=== PATIENT | female | born 1990 | race Caucasian/White ===

== ENCOUNTER 2017-06-29 22:12 | Emergency (ER) | payer OTHER ==
[~2017-06-29] VITALS: Ht 167.6 cm; Wt 63.5 kg
--- OUTSIDE RECORDS SUMMARY | ~2017-06-29 | XMS ---
Demographics + + + | Address | [address] | | | [place] [address] | + + + | Preferred Language | Unknown | + + + | Marital Status | Unknown | + + + | Baptism Affiliation | Unknown | + + + | Race | Unknown | + + + | Ethnic Group | Unknown | + + + Author + + + | Author | [facility] | + + + | Organization | [facility] | + + + | Address | 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 | | | | | | | | disabiliti | | | | | | | | es | | | | | | +---------+ + + +--------+ + + | Problem | Mood | 296.90 | | | Active | 33921956 | | | disorder | | | | | | +---------+ + + +--------+ + + | Problem | PTSD | 309.81 | | | Active | 90978797 | | | (post-trau | | | | | | | | matic | | | | | | | | stress | | | | | | | | disorder) | | | | | | +---------+ + + +--------+ + + | Problem | Pharyngiti | 034.0 | | | Active | 24229583 | | | s, | | | | | | | | streptococ | | | | | | | | jordan | | | | | | +---------+ + + +--------+ + + | Problem | | V25.9 | | | Active | 54442057 | | | control | | | | | | +---------+ + + +--------+ + + | Problem | Personalit | 301.9 | | | Active | 12919981 | | | y disorder | | | | | | +---------+ + + +--------+ + + | Problem | Impacted | H61.22 | | | Active | 27005235 | | | cerumen of | | | | | | | | left ear | | | | | | +---------+ + + +--------+ + + | Problem | Allergic | 477.8 | | | Active | 59345429 | | | rhinitis | | | | | | | | due to | | | | | | | | other | | | | | | | | allergen | | | | | | +---------+ + + +--------+ + + | Problem | Aspergers' | 299.80 | | | Active | 23987023 | | | syndrome | | | | | | +---------+ + + +--------+ + + | Problem | Dysthymic | 300.4 | | | Active | 36877524 | | | disorder | | | | | | +---------+ + + +--------+ + + | Problem | Hx of | V12.49 | | | Active | 915126947 | | | migraines | | | | | | +---------+ + + +--------+ + + | Problem | Chronic | 719.41 | | | Active | 626358975 | | | pain in | | | | | | | | right | | | | | | | | shoulder | | | | | | +---------+ + + +--------+ + + ALLERGIES + + + + +---------+ | Substance | Reaction | Event Type | Date | Status | + + + + +---------+ | N.K.D.A. | Unknown | Non Drug | March, | Unknown | | | | Allergy | | | + + + + +---------+ SOCIAL HISTORY No smoking Hx information available PLAN OF CARE + +---------+ | Activity | Details | + +---------+ +---+ | | +---+ + + + | Follow Up | as scheduled with PCP and as scheduled for | | | lab work Reason:null | + + + VITAL SIGNS + + + + | Height | 64.5 in | 2017-03-19 | + + + + | Weight | 165.9 lbs | 2017-03-19 | + + + + | BMI | 28.03 kg/m2 | 2017-03-19 | + + + + | Temperature | 98.3 degrees Fahrenheit | 2017-03-19 | + + + + | Heart Rate | 94 /min | 2017-03-19 | + + + + | Blood pressure systolic | 157 mm Hg | 2017-03-19 | + + + + | Blood pressure diastolic | 98 mm Hg | 2017-03-19 | + + + + MEDICATIONS + + + + + + + +--------+ | Medicati | Instruct | Dosage | Frequenc | Start | End Date | Duration | Status | | on | ions | | y | Date | | | | + + + + + + + +--------+ | Isentres | Orally | 1 tablet | 12h | 19 March, | | 28 | Active | | s 400 MG | Twice a | | | 2016 | | day(s) | | | | day | | | | | | | + + + + + + + +--------+ | Truvada | Orally | 1 tablet | 24h | 19 March, | | 28 | Active | | 200-300 | Once a | | | 2016 | | day(s) | | | MG | day | | | | | | | + + + + + + + +--------+ RESULTS + +--------+------+ + | Name | Result | Date | Reference Range | + +--------+------+ + | HIV screen | | | | + +--------+------+ + | result | | | | + +--------+------+ + | Hepatitis C Virus | | | | | Antibody | | | | + +--------+------+ + | HEPATITIS C VIRUS | | | | | ANTIBODY | | | | + +--------+------+ + PROCEDURES + + + + + | Procedure | Date Ordered | Related Diagnosis | Body Site | + + + + + | HEP A/HEP B VACC, | March 19, 2017 | | | | ADULT IM | | | | + + + + + | IMMUNIZATION ADMIN | March 19, 2017 | | | + + + + + | Est Level IV | March 19, 2017 | | | | Extended | | | | + + + + + IMMUNIZATIONS +---------+ + + + | Vaccine | Route | Administration Date | Status | +---------+ + + + | Hep B | IM Intramuscular | March 19, 2017 | Administered | +---------+ + + + | Hep B | IM Intramuscular | March 19, 2017 | Administered | +---------+ + + +"
--- OUTSIDE RECORDS SUMMARY | ~2017-06-29 | XMS ---
Demographics + + + | Address | [address] | | | [place] [address] | + + + | Preferred Language | Unknown | + + + | Marital Status | Unknown | + + + | Orthodoxy Affiliation | Unknown | + + + | Race | Unknown | + + + | Ethnic Group | Unknown | + + + Author + + + | Author | [facility] | + + + | Organization | [facility] | + + + | Address | [address] | | | [place] [address] | + + + | Phone | | + + + Care Team Providers + + + + | Care Rim Turning Machine Operator Name | Role | Phone | + + + + Unavailable | Unavailable | + + + + PROBLEMS +---------+ + + +--------+ + + | Type | Condition | ICD9-CM | [id number] | Onset | Condition | SNOMED | | | | Code | Code | Dates | Status | Code | +---------+ + + +--------+ + + | Problem | Mild | 317 | | | Active | 07115803 | | | intellectu | | | | | | | | al | | | | | | | | disabiliti | | | | | | | | es | | | | | | +---------+ + + +--------+ + + | Problem | Mood | 296.90 | | | Active | 51607085 | | | disorder | | | | | | +---------+ + + +--------+ + + | Problem | PTSD | 309.81 | | | Active | 43966412 | | | (post-trau | | | | | | | | matic | | | | | | | | stress | | | | | | | | disorder) | | | | | | +---------+ + + +--------+ + + | Problem | Pharyngiti | 034.0 | | | Active | 69781471 | | | s, | | | | | | | | streptococ | | | | | | | | jordan | | | | | | +---------+ + + +--------+ + + | Problem | | V25.9 | | | Active | 41184575 | | | control | | | | | | +---------+ + + +--------+ + + | Problem | Personalit | 301.9 | | | Active | 44892678 | | | y disorder | | | | | | +---------+ + + +--------+ + + | Problem | Impacted | H61.22 | | | Active | 16617709 | | | cerumen of | | | | | | | | left ear | | | | | | +---------+ + + +--------+ + + | Problem | Allergic | 477.8 | | | Active | 18339323 | | | rhinitis | | | | | | | | due to | | | | | | | | other | | | | | | | | allergen | | | | | | +---------+ + + +--------+ + + | Problem | Aspergers' | 299.80 | | | Active | 82700248 | | | syndrome | | | | | | +---------+ + + +--------+ + + | Problem | Dysthymic | 300.4 | | | Active | 00919571 | | | disorder | | | | | | +---------+ + + +--------+ + + | Problem | Hx of | V12.49 | | | Active | 454100390 | | | migraines | | | | | | +---------+ + + +--------+ + + | Problem | Chronic | 719.41 | | | Active | 585975874 | | | pain in | | | | | | | | right | | | | | | | | shoulder | | | | | | +---------+ + + +--------+ + + ALLERGIES + + + + +---------+ | Substance | Reaction | Event Type | Date | Status | + + + + +---------+ | N.K.DNaveedA. | Unknown | Non Drug | March, | Unknown | | | | Allergy | | | + + + + +---------+ SOCIAL HISTORY No smoking Hx information available PLAN OF CARE + +---------+ | Activity | Details | + +---------+ +---+ | | +---+ + + + | Follow Up | 6 Months Reason:null | + + + VITAL SIGNS + + + + | Height | 64.5 in | 2017-04-15 | + + + + | Weight | 162.8 lbs | 2017-04-15 | + + + + | BMI | 27.51 kg/m2 | 2017-04-15 | + + + + | Temperature | 99.4 degrees Fahrenheit | 2017-04-15 | + + + + | Heart Rate | 115 /min | 2017-04-15 | + + + + | Blood pressure systolic | 130 mm Hg | 2017-04-15 | + + + + | Blood pressure diastolic | 97 mm Hg | 2017-04-15 | + + + + MEDICATIONS + + + + + + + +--------+ | Medicati | Instruct | Dosage | Frequenc | Start | End Date | Duration | Status | | on | ions | | y | Date | | | | + + + + + + + +--------+ | Hepatiti | | as | | 31 May, | | | Active | | s B Vac | | directed | | 2016 | | | | | Recombin | | | | | | | | | ant 10 | | | | | | | | | MCG/0.5M | | | | | | | | | L | | | | | | | | + + + + + + + +--------+ | Ciproflo | Orally | 1 tablet | 12h | | | | Active | | xacin | Twice a | | | | | | | | HCl 500 | day | | | | | | | | MG | | | | | | | | + + + + + + + +--------+ | Sprintec | Orally | 1 tablet | 24h | 31 March, | | 28 | Active | | 28 | Once a | | | 2017 | | day(s) | | | 0.25-35 | day | | | | | | | | MG-MCG | | | | | | | | + + + + + + + +--------+ | Ciproflo | Otic | 4 drops | 12h | | | | Active | | xacin-De | Twice a | into | | | | | | | xamethas | day | affected | | | | | | | one | | ear | | | | | | | 0.3-0.1 | | | | | | | | | % | | | | | | | | + + + + + + + +--------+ | Hydrocod | Orally | 1 tablet | | | | | Active | | one-Acet | every | as | | | | | | | aminophe | 4-6 hrs | needed | | | | | | | n 5-325 | | | | | | | | | MG | | | | | | | | + + + + + + + +--------+ | Claritin | Orally | 1 tablet | 24h | | | | Active | | -D 24 | Once a | as | | | | | | | Hour | day | needed | | | | | | | 10-240 | | | | | | | | | MG | | | | | | | | + + + + + + + +--------+ RESULTS No Results PROCEDURES + + + + + | Procedure | Date Ordered | Related Diagnosis | Body Site | + + + + + | HEP A/HEP B VACC, | April 15, 2017 | | | | ADULT IM | | | | + + + + + | IMMUNIZATION ADMIN | April 15, 2017 | | | + + + + + | DSCHRG MED/CURRENT | April 15, 2017 | | | | MED MERGE | | | | + + + + + | Est Level III | April 15, 2017 | | | | Intermediate | | | | + + + + + | DOC MEDS VERIFIED | April 15, 2017 | | | | W/PT OR RE | | | | + + + + + IMMUNIZATIONS +---------+ + + + | Vaccine | Route | Administration Date | Status | +---------+ + + + | Hep B | IM Intramuscular | April 15, 2017 | Administered | +---------+ + + +"
[~2017-06-29 22:12] MED LIST: ADULT TUSS100 MG/5 M PO; ALL DAY ALLERGY10 M1 PO; AUGMENTIN 875-1 EACH PO; BENADRYL25 MG PO; BUTALB-ACETAMI1 EAC2 PO; BUTALB-ACETAMI1 EACH PO; CIPRO500 MG PO; CIPRODEX OTIC7.5 ML AS; CIPRODEX OTIC7.5 ML AU; CLARITIN5 MG/5 ML PO; COLACE50 MG PO; FEXOFENADINE HC60 MG PO; FLONASE ALLERG9.9 ML NS; IBUPROFEN800 MG PO; LATUDA60 MG PO; LITHIUM CARBON300 MG PO; NAPROSYN500 MG PO; NAPROXEN500 M1 PO; NORCO 5-325 TA1 EACH PO; PREVIFEM1 EACH PO; PROMETHAZINE HC25 M1 PO; PROMETHAZINE12.5 M1 PO; Q-TUSSIN100 MG/5 M PO; RISPERDAL3 MG PO; SPRINTEC1 EACH PO; TYLENOL325 MG PO; VITAMIN D250000 UNIT PO; [UNRECOGNIZED DRUG - OTHER] PO; [UNRECOGNIZED DRUG - OTHER] TOP
[2017-06-29] MEDS ORDERED: ZYRTEC10 MG PO (22:52)
== END 2017-06-29 22:41 | disposition home or self-care (01) ==
LOC: ED 22:12
PROC: 09C3XZZ Extirpation of Matter from Right External Auditory Canal, External Approach (ICD-10-PCS; principal; 2017-06-29)
DX: T16.1XXA Foreign body in right ear, initial encounter (principal); Z91.018 Allergy to other foods; Z79.899 Other long term (current) drug therapy
CPT/HCPCS: 69200; 99282

== ENCOUNTER 2018-03-02 17:25 | Emergency (ER) | payer OTHER ==
[~2018-03-02] VITALS: Ht 167.6 cm; Wt 65.8 kg
[~2018-03-02 17:25] MED LIST changes: +ZYRTEC10 MG PO
--- OUTSIDE RECORDS SUMMARY | 2018-03-02 17:29 | XMS ---
Demographics + + + | Address | [address] | | | [place] [address] | + + + | Preferred Language | Unknown | + + + | Marital Status | Unknown | + + + | Scientology Affiliation | Unknown | + + + | Race | Unknown | + + + | Ethnic Group | Unknown | + + + Author + + + | Author | [facility] | + + + | Organization | [facility] | + + + | Address | [address] | | | [place] [address] | + + + | Phone | | + + + Care Team Providers + + + + | Care Esol Teacher Assistant Name | Role | Phone | + + + + Unavailable | Unavailable | + + + + PROBLEMS +---------+ + + +--------+ + + | Type | Condition | ICD9-CM | [id number] | Onset | Condition | SNOMED | | | | Code | Code | Dates | Status | Code | +---------+ + + +--------+ + + | Problem | Mild | 317 | | | Active | [id number] | | | intellectu | | | | | | | | al | | | | | | | | disabiliti | | | | | | | | es | | | | | | +---------+ + + +--------+ + + | Problem | Mood | 296.90 | | | Active | 73308408 | | | disorder | | | | | | +---------+ + + +--------+ + + | Problem | PTSD | 309.81 | | | Active | 73978153 | | | (post-trau | | | | | | | | matic | | | | | | | | stress | | | | | | | | disorder) | | | | | | +---------+ + + +--------+ + + | Problem | Pharyngiti | 034.0 | | | Active | 69677994 | | | s, | | | | | | | | streptococ | | | | | | | | jordan | | | | | | +---------+ + + +--------+ + + | Problem | | V25.9 | | | Active | 24671941 | | | control | | | | | | +---------+ + + +--------+ + + | Problem | Personalit | 301.9 | | | Active | 75681170 | | | y disorder | | | | | | +---------+ + + +--------+ + + | Problem | Impacted | H61.22 | | | Active | 36322821 | | | cerumen of | | | | | | | | left ear | | | | | | +---------+ + + +--------+ + + | Problem | Allergic | 477.8 | | | Active | 01856563 | | | rhinitis | | | | | | | | due to | | | | | | | | other | | | | | | | | allergen | | | | | | +---------+ + + +--------+ + + | Problem | Aspergers' | 299.80 | | | Active | 51311038 | | | syndrome | | | | | | +---------+ + + +--------+ + + | Problem | Dysthymic | 300.4 | | | Active | 54076497 | | | disorder | | | | | | +---------+ + + +--------+ + + | Problem | Hx of | V12.49 | | | Active | 834888751 | | | migraines | | | | | | +---------+ + + +--------+ + + | Problem | Chronic | 719.41 | | | Active | 201991154 | | | pain in | | | | | | | | right | | | | | | | | shoulder | | | | | | +---------+ + + +--------+ + + ALLERGIES No Information SOCIAL HISTORY Never Assessed PLAN OF CARE VITAL SIGNS MEDICATIONS Unknown Medications RESULTS No Results PROCEDURES No Known procedures IMMUNIZATIONS No Known Immunizations MEDICAL (GENERAL) HISTORY + + +------+ | Type | Description | Date | + + +------+ | Medical History | seasonal allergies | | + + +------+ | Medical History | asthma | | + + +------+ | Medical History | migraines | | + + +------+ | Medical History | Dysthymic disorder | | + + +------+ | Medical History | PTSD | | + + +------+ | Medical History | Asperger's syndrome | | + + +------+ | Medical History | Pervasive Developmental d/o | | + + +------+ | Medical History | allergies, food, pineapple | | + + +------+ | Surgical History | ACL | | + + +------+ | Hospitalization History | surgery | | + + +------+"
[2018-03-02] MEDS ORDERED: PRENATAL TABLE1 EAC1 PO (17:46)
[2018-03-02] MEDS ORDERED: IRON18 MG PO (17:47)
[2018-03-02] MEDS ORDERED: NORCO 5-325 TA1 EACH PO (20:16)
== END 2018-03-02 20:25 | disposition home or self-care (01) ==
LOC: ED 17:25
DX: O03.9 Complete or unspecified spontaneous abortion without complication (principal); Z91.018 Allergy to other foods; Z79.899 Other long term (current) drug therapy
CPT/HCPCS: 76801; 76817; 84702; 85025; 86900; 86901; 96374; 99284; J1170; J7040

== ENCOUNTER 2019-03-25 00:02 | Inpatient (IN) | payer OTHER ==
[~2019-03-25] VITALS: Ht 167.6 cm; Wt 82.0 kg
[~2019-03-25 00:02] MED LIST changes: +IRON18 MG PO; +PRENATAL TABLE1 EAC1 PO
--- NOTE | 2019-03-25 14:29 | PR ---
[facility] [address] [place], [place] [address] Signed Progress Notes IP Datetime Report Generated by YASEMIN: 03/25/2019 14:29 PROGRESS NOTES: [id number] Impression: Reassuring heart rate Procedures: Sterile Vag Exam Informed Consent Obtain: Induction of Labor VITAL SIGNS: [id number] Vital Signs: Reviewed; Within Normal Limits EXAM: [id number] Dilatation: 2.0 Effacement: thick Station: -3 Uterine Contractions: irritability MEMBRANES: [id number] Comments: Pt seen and examined. Doing well. Complaining of low back pain. Uterine irritability noted on tocometer. Discussed options for continued EIOL including cytotec, Cook cath, or expectant management. Recommended pt ambulate, take warm bath, and recheck cervix. If unchanged, would consider additional prostaglandins vs Cook depending on uterine activity. Pt understands and agrees. Fetus A: [id number] FHR Baseline: 120 Variability: Moderate 6-25bpm Accelerations: 15X15 Decelerations: None FHR Category: Category I Presentation: Vertex Comments on Fetus A: No evidence of metabolic acidosis Fetus B: [id number] Signing Physician: Arminda Daniels DO Copies: ~ *Electronically Signed* 03/25/19 0030 ARMINDA DANIELS DO PATIENT NAME: JOSE A SMITH PROGRESS NOTE DATE OF : 90 PHYSICIAN: ARMINDA DANIELS #: [id number] REPORT IS CONFIDENTIAL AND NOT TO BE RELEASED WITHOUT AUTHORIZATION
--- NOTE | 2019-03-25 17:02 | PR ---
[facility] [address] [place], [place] [address] Signed Progress Notes IP Datetime Report Generated by CPN: 03/25/2019 17:02 PROGRESS NOTES: [id number] Impression: Reassuring heart rate Procedures: Sterile Vag Exam Plan: Cervical Ripening Informed Consent Obtain: Induction of Labor VITAL SIGNS: [id number] Vital Signs: Reviewed EXAM: [id number] Dilatation: 2.0 Effacement: thick Station: -3 Uterine Contractions: Irritability MEMBRANES: [id number] Comments: Reviewed lack of cervical change. Discussed options of cytotec vs Cook cath. PT w/ uterine irritability and not significant contractions, and I feel comfortable with cytotec. Reviewed risk of tachysystole, and patient and request continued cervical ripening w/ cytotec. Continue induction Fetus A: [id number] FHR Baseline: 125 Variability: Moderate 6-25bpm Accelerations: 15X15 Decelerations: None FHR Category: Category I Presentation: Vertex Comments on Fetus A: No evidence of metabolic acidosis Fetus B: [id number] Signing Physician: Arminda Daniels DO Copies: ~ *Electronically Signed* 03/25/19 3949 ARMINDA DANIELS DO PATIENT NAME: JOSE A SMITH PROGRESS NOTE DATE OF : 90 PHYSICIAN: ARMINDA DANIELS DO RPT #: [id number] REPORT IS CONFIDENTIAL AND NOT TO BE RELEASED WITHOUT AUTHORIZATION
--- NOTE | 2019-03-25 21:38 | PR ---
[facility] [address] [place], [place] [address] Signed Progress Notes IP Datetime Report Generated by YASEMIN: 03/25/2019 21:38 PROGRESS NOTES: [id number] Impression: Normal progression of labor; Reassuring heart rate Procedures: Artificial ROM; Intrauterine Pressure Catheter; Scalp Electrode; Sterile Vag Exam Plan: Continue present management Informed Consent Obtain: Vaginal Delivery Other Informed Consents: AROM VITAL SIGNS: [id number] Vital Signs: Reviewed; Within Normal Limits EXAM: [id number] Dilatation: 3.0 Effacement: 80 Station: -3 Uterine Contractions: q3-4 minutes MEMBRANES: [id number] ROM Note: Informed consent for AROM performed. vertex well applied. AROM easily performed for large amount of clear fluid. IUPC and FSE placed. Mother and baby doing well. Comments: Pt seen and examined. Doing well. Was uncomfortable w/ ctxs and epidural kindly placed by anesthesia. Pt now comfortable. Few late decelerations following epidural that have resolved and now Cat 1 tracing. Discussed AROM and performed w/out difficulty. Internals placed. Will expectantly manage Fetus A: [id number] FHR Baseline: 130 Variability: Moderate 6-25bpm Accelerations: Prolonged Decelerations: None FHR Category: Category I Presentation: Vertex Other Presentation: YAN Comments on Fetus A: No evidence of metabolic acidosis Fetus B: [id number] Signing Physician: Arminda Daniels DO Copies: *Electronically Signed* 03/25/19 6733 ARMINDA DANIELS DO PATIENT NAME: JOSE A SMITH PROGRESS NOTE DATE OF : 90 PHYSICIAN: ARMINDA DANIELS DO RPT #: [id number] REPORT IS CONFIDENTIAL AND NOT TO BE RELEASED WITHOUT AUTHORIZATION [address] [place], [place] [address] Signed ~ *Electronically Signed* 03/25/19 2138 ARMINDA DANIELS DO PATIENT NAME: JOSE A SMITH PROGRESS NOTE DATE OF : 90 PHYSICIAN: ARMINDA DANIELS DO RPT #: [id number] REPORT IS CONFIDENTIAL AND NOT TO BE RELEASED WITHOUT AUTHORIZATION
--- NOTE | 2019-03-27 12:18 | PR ---
[facility] [address] [facility] [place], [place] [address] Signed PP Progress Notes Datetime Report Generated by CPN: 03/27/2019 12:18 SUBJECTIVE: [id number] Pain: Within normal limits Nausea/Vomiting: Present Flatus: Yes Bowel Movement: No Vital Signs: [id number] Vital Signs: Reviewed; Within Normal Limits EXAM: [id number] Cardiovascular: Normal Respiratory: Normal Abdomen/Uterus: Normal Lochia: Normal Vulva/Perineum: Not Done Breasts: Not Done CVA Tenderness: Normal Extremities: Normal Incision: Not Applicable Progress: Normal Exam Comments: Fundus firm U-2 nontender IMPRESSION/PLAN/PROCEDURES: [id number] Impression: Normal progression Plan: Continue present management Progress Notes: Pt seen and examined. Doing well. Ambulating, voiding, and tolerating full diet. Pain and lochia minimal. with some difficulty and having to supplement some formula. No other concerns. Baby not yet ready for discharge. Plan d/c home tomorrow. Signing Physician: Arminda Daniels DO Copies: ~ *Electronically Signed* 03/27/19 1218 ARMINDA DANIELS DO PATIENT NAME: JOSE A SMITH PROGRESS NOTE DATE OF : 90 PHYSICIAN: ARMINDA DANIELS DO RPT #: [id number] REPORT IS CONFIDENTIAL AND NOT TO BE RELEASED WITHOUT AUTHORIZATION
--- NOTE | 2019-03-28 08:26 | PR ---
[facility] [address] [facility] [place], [place] [address] Signed PP Progress Notes Datetime Report Generated by CPN: 03/28/2019 08:26 SUBJECTIVE: [id number] Pain: Within normal limits Nausea/Vomiting: Denies Flatus: Yes Bowel Movement: No Vital Signs: [id number] Vital Signs: Reviewed EXAM: [id number] Cardiovascular: Normal Respiratory: Normal Abdomen/Uterus: Normal Lochia: Normal Vulva/Perineum: Not Done Breasts: Not Done CVA Tenderness: Normal Extremities: Normal Incision: Not Applicable Progress: Normal Exam Comments: Fundus firm U-2 nontender IMPRESSION/PLAN/PROCEDURES: [id number] Impression: Normal progression Plan: Discharge Progress Notes: Pt seen and examined. Doing well. Ambulating, voiding, and tolerating full diet. Pain and lochia minimal. well. No fevers/chills/concerns. Desires d/c home today. Planning Nexplanon for pp contraception. F/U 2 wks Signing Physician: Arminda Daniels DO Copies: ~ *Electronically Signed* 03/28/19 0826 ARMINDA DANIELS DO PATIENT NAME: JOSE A SMITH PROGRESS NOTE DATE OF : 90 PHYSICIAN: ARMINDA DANIELS DO RPT #: [id number] REPORT IS CONFIDENTIAL AND NOT TO BE RELEASED WITHOUT AUTHORIZATION
== END 2019-03-28 08:55 | disposition home or self-care (01) | DRG 807 ==
LOC: FBC 00:02
PROVIDERS: ADMIT Obstetrics & Gynecology
PROC: 3E0P7VZ Introduction of Hormone into Female Reproductive, Via Natural or Artificial Opening (ICD-10-PCS; 2019-03-25)
PROC: 10907ZC Drainage of Amniotic Fluid, Therapeutic from Products of Conception, Via Natural or Artificial Opening (ICD-10-PCS; 2019-03-25)
PROC: 00HU33Z Insertion of Infusion Device into Spinal Canal, Percutaneous Approach (ICD-10-PCS; 2019-03-25)
PROC: 3E0R3BZ Introduction of Anesthetic Agent into Spinal Canal, Percutaneous Approach (ICD-10-PCS; 2019-03-25)
PROC: 10E0XZZ Delivery of Products of Conception, External Approach (ICD-10-PCS; principal; 2019-03-26)
PROC: 0KQM0ZZ Repair Perineum Muscle, Open Approach (ICD-10-PCS; 2019-03-26)
PROC: 0UQMXZZ Repair Vulva, External Approach (ICD-10-PCS; 2019-03-26)
DX: O99.824 Streptococcus B carrier state complicating childbirth (principal); Z37.0 Single live birth; Z3A.40 40 weeks gestation of pregnancy; O77.0 Labor and delivery complicated by meconium in amniotic fluid; O70.1 Second degree perineal laceration during delivery; O71.82 Other specified trauma to perineum and vulva; O71.89 Other specified obstetric trauma; O69.82X0 Labor and delivery complicated by other cord entanglement, without compression, not applicable or unspecified
CPT/HCPCS: 36415; 85027; J2540; J2590; J3010; J7060

== ENCOUNTER 2024-11-20 16:57 | Emergency (ER) | payer OTHER ==
[~2024-11-20] VITALS: Ht 167.6 cm; Wt 88.0 kg
[2024-11-20 17:34] LABS: BASOPHILS 0.6 % (0-2); EOSINOPHILS 1.8 % (0-6); HEMATOCRIT 39.8 % (35.0-50.0); HEMOGLOBIN 13.8 g/dL (12.0-18.0); LYMPHOCYTES 32.3 % (24-44); MCH 31.1 (27-36); MCHC 34.7 g/dl (30-36); MCV 89.6 fl (81-99); MONOCYTES 5.5 % (0-12); NEUTROPHILS 59.8 % (39-80); PLATELET COUNT 209 K/uL (140-440); RBC 4.44 M/ul (4.3-5.7); RDW 13.5 (10.5-15.0)
[2024-11-20 17:49] LABS: ALBUMIN 4.2 g/dL (3.4-5.0); ALBUMIN/GLOBULIN RATIO 1.14 (1.1-2.4); ANION GAP 12.6 (7-21); BILIRUBIN, TOTAL 0.6 ng/dL (0.2-1.0); BUN/CREATININE RATIO 14.6 (6.0-28.6); CALCIUM 8.9 mg/dL (8.5-10.1); CREATININE, SERUM 0.89 mg/dL (0.55-1.02); POTASSIUM 3.6 mmol/L (3.5-5.1); PROTEIN, TOTAL 7.9 g/dL (6.4-8.2)
[2024-11-20 17:51] LABS: ABO O; RH POSITIVE
[2024-11-20] MEDS ORDERED: KETOROLAC TROMETHAMINE 30 MG/ML VIAL IV ONE (19:15)
[2024-11-20 19:22] VITALS: BP 115/85
== END 2024-11-20 19:24 | disposition home or self-care (01) ==
LOC: ED 16:57
PROVIDERS: Emergency Medicine
DX: O03.9 Complete or unspecified spontaneous abortion without complication (principal); Z91.018 Allergy to other foods; Z79.899 Other long term (current) drug therapy
CPT/HCPCS: 36415; 76801; 76817; 80053; 84702; 85025; 86900; 86901; 96374; 99284-25; J1885